=== PATIENT | male | born 1990 | race Caucasian/White ===

== ENCOUNTER 2020-07-21 19:55 | Inpatient (IN) | payer OTHER ==
[~2020-07-21] VITALS: Ht 175.3 cm; Wt 66.4 kg
[2020-07-21 20:46] LABS: COVID AG,FIA SOURCE NASOPHARYNGEAL
[2020-07-21 20:51] LABS: BASOPHILS % (AUTO) 1.1 % (0.0-2.0); EOSINOPHILS % (AUTO) 1.5 % (1.0-6.0); HEMATOCRIT 42.1 % (41-53); HEMOGLOBIN 14.3 g/dL (13.5-17.5); LYMPHOCYTES # (AUTO) 1.8 K/uL (1.0-4.8); LYMPHOCYTES % (AUTO) 24.1 % (22.0-44.0); MEAN CORPUSCULAR HEMOGLOBIN 29.2 pg (26.0-34.0); MEAN CORPUSCULAR VOLUME 86 fL (80-100); MONOCYTES # (AUTO) 0.8 K/uL (0.1-1.0); MONOCYTES % (AUTO) 10.8 % (2.0-9.0); NEUTROPHILS # (AUTO) 4.7 K/uL (1.8-7.7); NEUTROPHILS % (AUTO) 62.5 % (40.0-70.0); PLATELET COUNT (AUTO) 244 K/uL (150-450); RED CELL DISTRIBUTION WIDTH 14.1 % (11.5-14.5)
[2020-07-21 20:58] LABS: ANION GAP 12 mmol/L (8-16); CALCIUM, TOTAL 8.8 mg/dL (8.8-10.5); CARBON DIOXIDE 25 mmol/L (22-29); CHLORIDE 103 mmol/L (98-107); CREATININE 1.23 mg/dL (0.60-1.30); GLOMERULAR FILTR. RATE CALC > 60 mL/min (>60); GLUCOSE,RANDOM 108 mg/dL (70-110); POTASSIUM 3.7 mmol/L (3.5-5.1); SODIUM SERUM 140 mmol/L (136-145); UREA NITROGEN, BLOOD 31 mg/dL (7-18)
[2020-07-21 21:04] LABS: ALANINE AMINOTRANSFERASE 66 U/L (12-78); ALBUMIN 4.2 g/dL (3.4-5.0); ALKALINE PHOSPHATASE 72 U/L (46-116); ASPARTATE AMINOTRANSFERASE 39 U/L (15-37); BILIRUBIN,TOTAL 0.7 mg/dL (0.1-1.0); TOTAL PROTEIN, SERUM 7.6 g/dL (6.4-8.2)
[2020-07-21 21:05] LABS: AMPHET/METH SCREEN,URINE POSITIVE (NEGATIVE); BARBITURATE SCREEN, URINE NEGATIVE (NEGATIVE); BENZODIAZEPINES SCREEN,URINE POSITIVE (NEGATIVE); CANNABINOID SCREEN,URINE NEGATIVE (NEGATIVE); COCAINE SCREEN,URINE NEGATIVE (NEGATIVE); METHADONE SCREEN, URINE NEGATIVE (NEGATIVE); OPIATE SCREEN,URINE NEGATIVE (NEGATIVE); PHENCYCLIDINE SCREEN,URINE NEGATIVE (NEGATIVE)
[2020-07-21] MEDS ORDERED: ONDANSETRON HCL 4 MG/2 ML VIAL IVP PRN ×2 (21:15→23:30)
[2020-07-21] MEDS ORDERED: ACETAMINOPHEN 325 MG TABLET PO PRN ×2 (21:15→23:30)
[2020-07-21] MEDS ORDERED: 0.9% SODIUM CHLORIDE 10 ML SYRINGE IVP PRN (21:15)
[2020-07-21] MEDS ORDERED: LORazepam 1 MG TABLET PO ONE (21:30)
[2020-07-21] MEDS ORDERED: HALOPERIDOL 5 MG TABLET PO PRN (21:30)
[2020-07-21] MEDS ORDERED: HALOPERIDOL 5 MG TABLET ONE (21:34)
[2020-07-21] MEDS: DiphenhydrAMINE HCL 50 MG/ML VIAL IM ONE ×2 (21:39→22:05)
[2020-07-21] MEDS: HALOPERIDOL LACTATE 5 MG/ML VIAL IM ONE ×2 (21:39→21:45)
[2020-07-21] MEDS: LORazepam 2 MG/ML VIAL IM ONE ×2 (21:39→21:45)
[2020-07-21 22:30] VITALS: BP 106/69
[2020-07-21] MEDS ORDERED: ZOLPIDEM TARTRATE 5 MG TABLET PO PRN (23:30)
[2020-07-21] MEDS ORDERED: MAGNESIUM HYDROXIDE SUSPENSION 30 ML UDCUP PO PRN (23:30)
[2020-07-21] MEDS ORDERED: IPRATROPIUM BROMIDE 0.5 MG/2.5 ML NEB SOLUTION NEB PRN (23:30)
[2020-07-21] MEDS ORDERED: ALBUTEROL SULFATE 2.5 MG/0.5 ML NEB SOLUTION NEB PRN (23:30)
[2020-07-21] MEDS ORDERED: BISACODYL 10 MG RECTAL RECTAL SUPPOSITORY PR PRN (23:30)
[2020-07-22] MEDS: HEPARIN SODIUM,PORCINE 5,000 UNITS/ML VIAL SQ SCH ×4 (00:39→23:29)
[2020-07-22 05:20] VITALS: BP 106/66
[2020-07-22 07:25] VITALS: BP 113/63
[2020-07-22] MEDS: DOCUSATE SODIUM 100 MG CAPSULE PO SCH ×2 (08:57→20:23)
[2020-07-22 20:48] VITALS: BP 109/74
[2020-07-23 07:35] VITALS: BP 133/72
[2020-07-23] MEDS: DOCUSATE SODIUM 100 MG CAPSULE PO SCH (08:04)
[2020-07-23] MEDS: HEPARIN SODIUM,PORCINE 5,000 UNITS/ML VIAL SQ SCH (08:04)
== END 2020-07-23 15:40 | DRG 885 ==
LOC: EMS 20:03 → 6S 21:14
PROVIDERS: ADMIT Hospitalist; ATTEND Hospitalist
DX: F29 Unspecified psychosis not due to a substance or known physiological condition (principal); Z20.822 Contact with and (suspected) exposure to COVID-19; F15.10 Other stimulant abuse, uncomplicated; Z78.1 Physical restraint status
CPT/HCPCS: 87426; 99291; G0480; J1630; J1644

== ENCOUNTER 2020-07-26 18:45 | Inpatient (IN) | payer OTHER ==
[~2020-07-26] VITALS: Ht 175.3 cm; Wt 64.4 kg
[2020-07-26 21:43] LABS: COVID AG,FIA SOURCE NASOPHARYNGEAL
[2020-07-26 21:43] LABS: BASOPHILS % (AUTO) 0.8 % (0.0-2.0); EOSINOPHILS % (AUTO) 0.3 % (1.0-6.0); HEMATOCRIT 46.5 % (41-53); HEMOGLOBIN 15.6 g/dL (13.5-17.5); LYMPHOCYTES # (AUTO) 2.2 K/uL (1.0-4.8); LYMPHOCYTES % (AUTO) 22.4 % (22.0-44.0); MEAN CORPUSCULAR HEMOGLOBIN 28.9 pg (26.0-34.0); MEAN CORPUSCULAR HGB CONC 33.5 G/dL (31.0-37.0); MEAN CORPUSCULAR VOLUME 86 fL (80-100); MONOCYTES % (AUTO) 10.6 % (2.0-9.0); NEUTROPHILS # (AUTO) 6.4 K/uL (1.8-7.7); NEUTROPHILS % (AUTO) 65.9 % (40.0-70.0); PLATELET COUNT (AUTO) 292 K/uL (150-450); RED BLOOD CELL COUNT(AUTO) 5.39 MIL/uL (4.50-5.90); RED CELL DISTRIBUTION WIDTH 14.3 % (11.5-14.5)
[2020-07-26 21:59] LABS: ANION GAP 15 mmol/L (8-16); CARBON DIOXIDE 24 mmol/L (22-29); CHLORIDE 102 mmol/L (98-107); GLOMERULAR FILTR. RATE CALC 59 mL/min (>60); GLUCOSE,RANDOM 121 mg/dL (70-110); POTASSIUM 3.6 mmol/L (3.5-5.1); SODIUM SERUM 141 mmol/L (136-145); UREA NITROGEN, BLOOD 29 mg/dL (7-18)
[2020-07-26 22:05] LABS: ALANINE AMINOTRANSFERASE 74 U/L (12-78); ALBUMIN 4.8 g/dL (3.4-5.0); ALKALINE PHOSPHATASE 72 U/L (46-116); ASPARTATE AMINOTRANSFERASE 28 U/L (15-37); BILIRUBIN,TOTAL 0.9 mg/dL (0.1-1.0); TOTAL PROTEIN, SERUM 8.5 g/dL (6.4-8.2)
[2020-07-26] MEDS ORDERED: SODIUM CHLORIDE 0.9% 2,200 ML IV SCH (22:15)
[2020-07-26] MEDS ORDERED: HALOPERIDOL LACTATE 5 MG/ML VIAL IM ONE (22:15)
[2020-07-26 23:58] VITALS: BP 119/74
[2020-07-27 04:00] VITALS: BP 103/78
[2020-07-27 07:41] LABS: ANION GAP 9 mmol/L (8-16); CALCIUM, TOTAL 9.3 mg/dL (8.8-10.5); CARBON DIOXIDE 29 mmol/L (22-29); CHLORIDE 102 mmol/L (98-107); CREATININE 1.13 mg/dL (0.60-1.30); GLOMERULAR FILTR. RATE CALC > 60 mL/min (>60); GLUCOSE,RANDOM 95 mg/dL (70-110); POTASSIUM 4.3 mmol/L (3.5-5.1); SODIUM SERUM 140 mmol/L (136-145); UREA NITROGEN, BLOOD 29 mg/dL (7-18)
[2020-07-27 08:22] VITALS: BP 104/65
[2020-07-27] MEDS: QUEtiapine FUMARATE 25 MG TABLET PO SCH ×2 (08:30→20:43)
[2020-07-27 20:32] VITALS: BP 118/81
[2020-07-28 04:36] VITALS: BP 114/74
[2020-07-28] MEDS: QUEtiapine FUMARATE 25 MG TABLET PO SCH ×2 (08:10→20:02)
[2020-07-28] MEDS: SERTRALINE HCL 50 MG TABLET PO SCH (08:12)
[2020-07-28 08:22] VITALS: BP 116/78
[2020-07-28 19:19] VITALS: BP 120/71
[2020-07-29 04:55] VITALS: BP 95/63
[2020-07-29 07:52] VITALS: BP 113/53
[2020-07-29] MEDS: SERTRALINE HCL 50 MG TABLET PO SCH (08:10)
[2020-07-29] MEDS: QUEtiapine FUMARATE 25 MG TABLET PO SCH ×2 (08:10→19:48)
[2020-07-29 19:25] VITALS: BP 128/81
[2020-07-30 05:02] VITALS: BP 107/74
[2020-07-30 07:33] VITALS: BP 98/52
[2020-07-30] MEDS: SERTRALINE HCL 50 MG TABLET PO SCH (08:22)
[2020-07-30] MEDS: QUEtiapine FUMARATE 25 MG TABLET PO SCH ×2 (08:22→20:03)
[2020-07-30] MEDS ORDERED: QUET25TA PO (11:52)
[2020-07-30] MEDS ORDERED: SERT-158 PO (11:53)
[2020-07-30 19:25] VITALS: BP 131/66
== END 2020-07-31 00:39 | DRG 885 ==
LOC: EMS 18:47 → 6S 20:56
PROVIDERS: ADMIT Internal Medicine; ATTEND Internal Medicine
DX: F33.2 Major depressive disorder, recurrent severe without psychotic features (principal); N17.9 Acute kidney failure, unspecified; F23 Brief psychotic disorder; T71.162A Asphyxiation due to hanging, intentional self-harm, initial encounter; F41.9 Anxiety disorder, unspecified; F19.10 Other psychoactive substance abuse, uncomplicated; Z91.5 Personal history of self-harm; Z20.822 Contact with and (suspected) exposure to COVID-19
CPT/HCPCS: 84443; 87426; 99285; G0480; J1630